=== PATIENT | female | born 1965 | race American Indian/Alaskan Native ===

== ENCOUNTER 2016-11-12 13:42 | Outpatient (CLI) | payer BC ==
--- NOTE | 2016-11-12 16:29 | Mammography Report ---
BONE DENSITY STUDY: Screening. DEFINITIONS: BMD = Bone Mineral Density T-score = BMD related to mean peak bone mass of young adult (mean expressed in Standard Deviation) Z-score = Age matched BMD expressed in SD World Health Organization (WHO) Diagnostic Criteria Normal T-score > -1 SD Osteopenia T-score between -1 and -2.4 SD Osteoporosis T-score -2.5 SD or below FINDINGS: The weighted average BMD of lumbar spine L1-L4 is .925 with a T-score of -1.1. The weighted average BMD of the right hip is 0.998 with a T-score of 0.5. The BMD is 0.740 with a T. value score of -1.0. IMPRESSION: The patient's average T-score is diagnostic for osteopenia and average relative risk for fracture. NOTE: BMD is not the only risk factor for fracture; also consider factors such as the patient's age, risk of falling, previous osteoporotic fracture, family history of osteoporotic fractures, current smoker, and low body weight. Naranjo's triangle is a region of interest in femur, predominantly of trabecular bone. It is not a true anatomic site, and [facility] does not recommend its use clinically.
== END 2016-11-12 13:43 | disposition home or self-care (01) ==
LOC: MAMMO 13:42
PROVIDERS: ATTEND Internal Medicine Hematology & Oncology
DX: M85.88 Other specified disorders of bone density and structure, other site (principal); I82.411 Acute embolism and thrombosis of right femoral vein
CPT/HCPCS: 77080